=== PATIENT | female | born 1995 | race Caucasian/White ===

== ENCOUNTER 2018-04-18 14:06 | Emergency (ER) | payer BC ==
[2018-04-18] MEDS ORDERED: HYDROmorphone HCL INJ 2 MG/ML VIAL IV ONE (15:01)
[2018-04-18] MEDS ORDERED: ONDANSETRON INJ 4 MG/2 ML VIAL IV ONE (15:01)
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
--- NOTE | 2018-04-18 16:28 | CT ---
EXAM DESCRIPTION: Abdomen/Pelvis w/Contrast CLINICAL HISTORY: RLQ PAIN. (IV CONTRAST) COMPARISON: None Available TECHNIQUE: Contiguous axial images of the abdomen and pelvis were obtained after the administration of intravenous contrast followed by reconstruction images.This exam was performed according to our departmental dose-optimization program, which includes automated exposure control, adjustment of the mA and/or kV according to patient size and/or use of iterative reconstruction technique. FINDINGS: The liver, spleen, pancreas and kidneys are within normal limits. There is no hydronephrosis. The gallbladder is unremarkable. Adrenal glands are within normal limits. Aorta is normal in caliber and tapering. No significant free fluid. No free air. No bowel obstruction. There is no stranding of the mesenteric fat. The appendix appears normal. No evidence of periappendiceal inflammation. IMPRESSION: No acute intra-abdominal abnormality Electronically signed by: Josh Celis 04/18/2018 4:27 PM CDT
[2018-04-18 16:42] VITALS: O2SAT 99
[2018-04-18] MEDS ORDERED: methylPREDNISolone SODIUM SUC 125 MG/2 ML VIAL IV ONE (16:49)
[2018-04-18 17:46] VITALS: TEMP 99
[2018-04-18 17:48] VITALS: BP 122/60
== END 2018-04-18 17:35 | disposition home or self-care (01) ==
LOC: ER 14:06
DX: N80.9 Endometriosis, unspecified (principal); R11.0 Nausea; R50.9 Fever, unspecified; R61 Generalized hyperhidrosis
CPT/HCPCS: 36415; 74177; 80053; 81001; 84703; 85025; J1170; J2405; J2930

== ENCOUNTER 2018-09-08 19:42 | Emergency (ER) | payer BC ==
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
[2018-09-08 20:14] VITALS: TEMP 97.8
[2018-09-08] MEDS ORDERED: KETOROLAC TROMETHAMINE INJ 30 MG/ML VIAL IV ONE (20:39)
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
[2018-09-08] MEDS ORDERED: CYCLOBENZAPRINE HCL 10 MG TAB PO ONE (21:46)
[2018-09-08] MEDS ORDERED: HYDROcodone 5MG/APAP 325MG 1 EA TAB PO ONE (21:46)
[2018-09-08 22:11] VITALS: BP 119/80; O2SAT 98
== END 2018-09-08 22:10 | disposition home or self-care (01) ==
LOC: ER 19:42
DX: T14.8XXA Other injury of unspecified body region, initial encounter (principal); R51 Headache; M54.2 Cervicalgia; M79.652 Pain in left thigh; M79.662 Pain in left lower leg; M25.562 Pain in left knee; S60.511A Abrasion of right hand, initial encounter; M25.511 Pain in right shoulder; M79.631 Pain in right forearm; Z87.891 Personal history of nicotine dependence; V47.5XXA Car driver injured in collision with fixed or stationary object in traffic accident, initial encounter; Y92.410 Unspecified street and highway as the place of occurrence of the external cause
CPT/HCPCS: 36415; 70450; 72125; 73020; 73060; 73090; 73120; 73551; 73560; 73590; 73620; 80053; 81001; 84703; 85025; J1885